=== PATIENT | male | born 1980 | race American Indian/Alaskan Native ===

== ENCOUNTER 2017-08-24 11:54 | Emergency (ER) | payer OTHER ==
[2017-08-24 12:02] VITALS: BP 129/83
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
== END 2017-08-24 17:22 | disposition home or self-care (01) ==
LOC: ED 11:54
DX: M25.512 Pain in left shoulder (principal); F17.200 Nicotine dependence, unspecified, uncomplicated; V43.52XA Car driver injured in collision with other type car in traffic accident, initial encounter; Y93.89 Activity, other specified; Y92.89 Other specified places as the place of occurrence of the external cause; Y99.8 Other external cause status
CPT/HCPCS: 99283

== ENCOUNTER 2019-09-04 08:01 | Emergency (ER) | payer OTHER ==
[2019-09-04 08:13] VITALS: BP 121/71
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
== END 2019-09-04 10:09 | disposition left against medical advice (07) ==
LOC: ED 08:01
DX: S83.8X1A Sprain of other specified parts of right knee, initial encounter (principal); S83.8X2A Sprain of other specified parts of left knee, initial encounter; V87.7XXA Person injured in collision between other specified motor vehicles (traffic), initial encounter; Y93.89 Activity, other specified; Y92.89 Other specified places as the place of occurrence of the external cause; Y99.8 Other external cause status
CPT/HCPCS: 99281